=== PATIENT | male | born 1980 | race Two or more races ===

== ENCOUNTER 2025-11-18 19:46 | Emergency (ER) | payer SELFPAY ==
[~2025-11-18] VITALS: Ht 165.1 cm; Wt 56.7 kg
[2025-11-18] MEDS ORDERED: LORAZEPAM 1 MG TABLET ONE (21:10)
[2025-11-18] MEDS: LORAZEPAM 1 MG TABLET PO ONE (21:16)
[2025-11-18] MEDS ORDERED: LORA-258 PO ×2 (21:49→21:51)
[2025-11-18] MEDS ORDERED: ONDA4TAB5 PO (21:49)
[2025-11-18 22:11] VITALS: BP 125/100; TEMP 98.8; O2SAT 100
== END 2025-11-18 22:12 | disposition home or self-care (01) ==
LOC: ER 19:52
DX: F41.9 Anxiety disorder, unspecified (principal); R00.2 Palpitations
CPT/HCPCS: 99283; 93005; 82962; Q0177